=== PATIENT | female | born 1985 | race Caucasian/White ===

== ENCOUNTER 2016-10-14 12:48 | Emergency (ER) | payer OTHER ==
--- NOTE | 2016-10-14 13:47 | ED CLINICAL REPORT ---
Clinical Report - Physicians/Mid Levels [facility] [address] [place] [address] 10/14/2016 12:53 Patient: ALEJANDRA LAZO Time Seen: 13:14 Oct 14 2016. Arrived- By private vehicle. Historian- patient. HISTORY OF PRESENT ILLNESS Chief Complaint: EYE PAIN. This started just prior to arrival, involves the left eye and is characterized as mild. It is not still present. Eye pain. No eye discomfort or eye burning. 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 He reports some blurred vision. Denies any new vision changes. Patient reports he is supposed to be wearing prescription glasses, however has not been wearing since due to financial costs and restrictions. Denies a headache. Denies LOC.). REVIEW OF SYSTEMS All systems otherwise negative, except as recorded above. PAST HISTORY See nurses notes. ADDITIONAL NOTES The nursing notes have been reviewed. PHYSICAL EXAM Vital Signs: 10/14/2016 13:03 BP: 139/73. HR: 61. RR: 18. O2 saturation: 100%. Temp: 97.8 F. Pain level now: 2/10. HEENT: Ears normal. Nose normal. Rt Eye: Right eye exam normal. Eyes: Visual acuity noted- see nurse's notes. Left eye examined with slit lamp. Lt Eye: Injury to periorbital area- (inferior lid small abrasion, minor swelling). Corneal foreign body is present. Fluorescein dye uptake on the cornea. Pupil regular. No hyphema, retinal hemorrhages, conjunctival edema or EOM palsy. Angle not shallow. No papilledema. Conjunctiva not injected. CVS: Normal heart rate and rhythm. Heart sounds normal. Respiratory: No respiratory distress. Breath sounds normal. Skin: No rash. Neuro: Oriented X 3. PROGRESS AND PROCEDURES Course of Care: No signs of foreign body, signs of fluorescein dye uptake. Patient with good EOM. No signs of protruding injuries. Patient very stable. No osseous tenderness. No headache. No other injuries. Small subconjunctival hemorrhage on the left aspect laterally. No signs of other protruding injuries, negative Tinel sign. 10/14/2016 13:03 BP: 139/73. HR: 61. RR: 18. O2 saturation: 100%. Temp: 97.8 F. Pain level now: 10. Patient is stable. Symptoms better. Patient/family counseled. Disposition: Discharged. CLINICAL IMPRESSION Small corneal abrasion to the left eye. Single superficial abrasion to the left eyelid. INSTRUCTIONS ([facility] ). Prescription Medications: Polytrim ophthalmic solution: Instill 1 drop into affected eye every 3 hours while awake (max 6 doses per day) for 1 week. Dispense five (5) mL. No refills. Substitution is permissible. (Electronically signed by Anita Elias P.A.-C 10/14/2016 15:23)
--- NOTE | 2016-10-14 13:47 | ED NURSING NOTES ---
Clinical Report - Nurses [facility] [address] [place] [address] 10/14/2016 12:53 Patient: ALEJANDRA LAZO TRIAGE Acuity: LEVEL 3. Chief Complaint: REDNESS, PAIN and VISION PROBLEM TO LEFT EYE. Alert. No acute distress. SEPSIS SCREEN: Sepsis Screen. Negative (no infection suspected/documented). VISUAL ACUITY: Visual acuity performed: unable to obtain due to blurred vision. --13:08 Vero Webber R.N. 13:03 10/14/16. BP: 139/73. HR: 61. RR: 18. O2 saturation: 100% on room air. Temp: 97.8 F (oral). Pain level now: 2/10. --13:08 Vero Webber R.N. Weight: 70.3 kg stated. Height/Length: 72 inches Per Patient. BMI: 21. --13:07 Vero Webber R.N. Medications None. --13:06 Vero Webber R.N. Medication/allergy information source: the patient. --13:08 Vero Webber R.N. Allergies No Known Drug Allergy. --13:06 Vero Webber R.N. History Arrived by private vehicle. Historian: patient. Accompanied by friend. Primary physician (none). This started just prior to arrival. She sustained injury. 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 (iced). PAST MEDICAL HX: Immunizations: up-to-date. SOCIAL HX: Current every day light tobacco smoker- less than 1/2 a pack per day. Occasional alcohol use. History of weekly drug use: marijuana. FALL RISK ASSESSMENT: Fall risk assessment completed. No fall risk identified. NUTRITIONAL RISK ASSESSMENT: The nutritional risk assessment revealed no deficiencies. FUNCTIONAL ASSESSMENT: Functional assessment: no impairments noted. LEARNING NEEDS ASSESSMENT: The learning needs assessment revealed no barriers. SKIN INTEGRITY ASSESSMENT: Skin integrity risk assessment completed. No skin integrity risk identified. --13:08 Vero Webber R.N. Assessment GENERAL / NEURO / PSYCH: Alert. Oriented X 4. Appears in no acute distress. [place] Coma Scale: 15- eyes open spontaneously (4); best verbal response- oriented x 4 (5); best motor response- obeys commands (6). Patient appears calm and cooperative. RESPIRATORY: Respirations not labored. CVS: Capillary refill less than 2 seconds. GI / : Abdomen nontender. SKIN: Mucous membranes are pink. Skin is warm and dry. --13:08 Vero Webber R.N. Interventions ID band on patient. To treatment room. --13:08 Vero Webber R.N. NURSING PROGRESS NOTES 13:08 10/14/16. Two patient identifiers checked. Call light placed in reach. Bed placed in lowest position. Brakes of bed on. Patient ready for evaluation- chart flagged and ED physician and PA notified. --13:08 Vero Webber R.N. DISPOSITION / DISCHARGE Departure time: 13:50 Oct 14 2016. Condition at departure: improved and stable. No learning barriers present. Discharge instructions provided and reviewed with the patient. Reviewed medication(s) side effects, precautions and dosing information. Prescription(s) given to the patient. Patient verbalized understanding. Written instructions provided in Uzbek. The patient was discharged by the physician cosmetic sales assistant. She was discharged home and accompanied by ob nurse. She left the Emergency Department ambulatory and via private vehicle. Propeller Engineer driving. --14:52 Vero Webber R.N. Locked/Released at 10/14/2016 14:52 by Vero Webber R.N.
--- NOTE | 2016-10-14 13:47 | ED NURSING NOTES ---
Clinical Report - Nurses [facility] [address] [place] [address] 10/14/2016 12:53 Patient: ALEJANDRA LAZO TRIAGE Acuity: LEVEL 3. Chief Complaint: REDNESS, PAIN and VISION PROBLEM TO LEFT EYE. Alert. No acute distress. SEPSIS SCREEN: Sepsis Screen. Negative (no infection suspected/documented). VISUAL ACUITY: Visual acuity performed: unable to obtain due to blurred vision. --13:08 Vero Webber R.N. 13:03 10/14/16. BP: 139/73. HR: 61. RR: 18. O2 saturation: 100% on room air. Temp: 97.8 F (oral). Pain level now: 2/10. --13:08 Vero Webber R.N. Weight: 70.3 kg stated. Height/Length: 72 inches Per Patient. BMI: 21. --13:07 Vero Webber R.N. Medications None. --13:06 Vero Webber R.N. Medication/allergy information source: the patient. --13:08 Vero Webber R.N. Allergies No Known Drug Allergy. --13:06 Vero Webber R.N. History Arrived by private vehicle. Historian: patient. Accompanied by friend. Primary physician (none). This started just prior to arrival. She sustained injury. 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 PAST MEDICAL HX: Immunizations: up-to-date. SOCIAL HX: Current every day light tobacco smoker- less than 1/2 a pack per day. Occasional alcohol use. History of weekly drug use: marijuana. FALL RISK ASSESSMENT: Fall risk assessment completed. No fall risk identified. NUTRITIONAL RISK ASSESSMENT: The nutritional risk assessment revealed no deficiencies. FUNCTIONAL ASSESSMENT: Functional assessment: no impairments noted. LEARNING NEEDS ASSESSMENT: The learning needs assessment revealed no barriers. SKIN INTEGRITY ASSESSMENT: Skin integrity risk assessment completed. No skin integrity risk identified. --13:08 Vero Webber R.N. Assessment GENERAL / NEURO / PSYCH: Alert. Oriented X 4. Appears in no acute distress. [place] Coma Scale: 15- eyes open spontaneously (4); best verbal response- oriented x 4 (5); best motor response- obeys commands (6). Patient appears calm and cooperative. RESPIRATORY: Respirations not labored. CVS: Capillary refill less than 2 seconds. GI / : Abdomen nontender. SKIN: Mucous membranes are pink. Skin is warm and dry. --13:08 Vero Webber R.N. Interventions ID band on patient. To treatment room. --13:08 Vero Webber R.N. NURSING PROGRESS NOTES 13:08 10/14/16. Two patient identifiers checked. Call light placed in reach. Bed placed in lowest position. Brakes of bed on. Patient ready for evaluation- chart flagged and ED physician and PA notified. --13:08 Vero Webber R.N. DISPOSITION / DISCHARGE Departure time: 13:50 Oct 14 2016. Condition at departure: improved and stable. No learning barriers present. Discharge instructions provided and reviewed with the patient. Reviewed medication(s) side effects, precautions and dosing information. Prescription(s) given to the patient. Patient verbalized understanding. Written instructions provided in Telugu. The patient was discharged by the physician captain assistant. She was discharged home and accompanied by clinical allergist. She left the Emergency Department ambulatory and via private vehicle. Nurses Director driving. --14:52 Vero Webber R.N. Locked/Released at 10/14/2016 14:52 by Vero Webber R.N.
--- NOTE | 2016-10-14 13:47 | ED CLINICAL REPORT ---
Clinical Report - Physicians/Mid Levels [facility] [address] [place] [place] [address] 10/14/2016 12:53 Patient: ALEJANDRA LAZO Time Seen: 13:14 Oct 14 2016. Arrived- By private vehicle. Historian- patient. HISTORY OF PRESENT ILLNESS Chief Complaint: EYE PAIN. This started just prior to arrival, involves the left eye and is characterized as mild. It is not still present. Eye pain. No eye discomfort or eye burning. 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 He reports some blurred vision. Denies any new vision changes. Patient reports he is supposed to be wearing prescription glasses, however has not been wearing since due to financial costs and restrictions. Denies a headache. Denies LOC.). REVIEW OF SYSTEMS All systems otherwise negative, except as recorded above. PAST HISTORY See nurses notes. ADDITIONAL NOTES The nursing notes have been reviewed. PHYSICAL EXAM Vital Signs: 10/14/2016 13:03 BP: 139/73. HR: 61. RR: 18. O2 saturation: 100%. Temp: 97.8 F. Pain level now: 2/10. HEENT: Ears normal. Nose normal. Rt Eye: Right eye exam normal. Eyes: Visual acuity noted- see nurse's notes. Left eye examined with slit lamp. Lt Eye: Injury to periorbital area- (inferior lid small abrasion, minor swelling). Corneal foreign body is present. Fluorescein dye uptake on the cornea. Pupil regular. No hyphema, retinal hemorrhages, conjunctival edema or EOM palsy. Angle not shallow. No papilledema. Conjunctiva not injected. CVS: Normal heart rate and rhythm. Heart sounds normal. Respiratory: No respiratory distress. Breath sounds normal. Skin: No rash. Neuro: Oriented X 3. PROGRESS AND PROCEDURES Course of Care: No signs of foreign body, signs of fluorescein dye uptake. Patient with good EOM. No signs of protruding injuries. Patient very stable. No osseous tenderness. No headache. No other injuries. Small subconjunctival hemorrhage on the left aspect laterally. No signs of other protruding injuries, negative Tinel sign. 10/14/2016 13:03 BP: 139/73. HR: 61. RR: 18. O2 saturation: 100%. Temp: 97.8 F. Pain level now: 10. Patient is stable. Symptoms better. Patient/family counseled. Disposition: Discharged. CLINICAL IMPRESSION Small corneal abrasion to the left eye. Single superficial abrasion to the left eyelid. INSTRUCTIONS ([facility] ). Prescription Medications: Polytrim ophthalmic solution: Instill 1 drop into affected eye every 3 hours while awake (max 6 doses per day) for 1 week. Dispense five (5) mL. No refills. Substitution is permissible. (Electronically signed by Anita Elias P.A.-C 10/14/2016 15:23)
--- NOTE | 2016-10-14 15:23 | ED DISCHARGE INSTRUCTIONS ---
Patient: ALEJANDRA LAZO General Instructions [facility] VisitID: [id number] [place] [address] 31y, F Registration Date/Time: 10/14/2016 Small corneal abrasion to the left eye. Single superficial abrasion to the left eyelid. INSTRUCTIONS ([facility] ). Prescription Medications: Polytrim ophthalmic solution: Instill 1 drop into affected eye every 3 hours while awake (max 6 doses per day) for 1 week. Dispense five (5) mL. No refills. Substitution is permissible. ADDITIONAL INFORMATION Corneal Abrasion The cornea is the clear part in the front of the eye. This sensitive area is very painful when injured. There may be tearing and your vision may be blurry until healing occurs. You may be sensitive to light. This part of the body heals quickly. You can expect the pain to go away within 24-48 hours. If the abrasion is large or deep, your doctor may apply an eye patch, although this is not always done. An antibiotic ointment or eye drops may also be used to prevent infection. Numbing drops may be used to relieve the pain temporarily so that your eyes can be examined. However, these drops cannot be prescribed for home use because that would slow down the healing process. Also, if you cant feel your eye, there is a chance of accidentally injuring your eye further without knowing it. Home Care: A cold pack (ice in a plastic bag, wrapped in a towel) may be applied over the eye (or eyepatch) for 20 minutes at a time, to reduce pain. You may use acetaminophen (Tylenol) or ibuprofen (Motrin, Advil) to control pain, unless another pain medicine was prescribed. [NOTE: If you have chronic liver or kidney disease or ever had a stomach ulcer or GI bleeding, talk with your doctor before using these medicines.] Rest your eyes and do not read until symptoms are gone. If you use contact lenses, do not wear them until all symptoms are gone. If your vision is affected by the corneal abrasion or if an eyepatch was applied, DO NOT DRIVE a motor vehicle or operate machinery until all symptoms are gone. Otherwise, you would have trouble judging distances with only one eye. If your eyes are sensitive to light, try wearing sunglasses, or stay indoors, until symptoms go away. Follow Up as advised by our staff. Serious abrasions may be referred to an injection specialist (director of coding). If no patch was used but the pain continues for more than 48 hours, you should have another exam. Return to this facility or contact the referral doctor to arrange this. If your eye was patched and if you were asked to remove the patch yourself, see your doctor or return to this facility if your pain is still present after the patch is removed. If you were given a return appointment for patch removal and re-exam, do not miss this. It could be harmful if the patch remains in place longer than advised. Get Prompt Medical Attention if any of the following occur: Increasing eye pain or pain that does not improve after 24 hours Discharge from the eye Increasing redness of the eye or swelling of the eyelids Your vision gets worse Abrasions Abrasions are skin scrapes. Their treatment depends on how large and deep the abrasion is. Home Care: If you were given a bandage, change it once a day. If your bandage sticks to the wound, soak it in warm water until it loosens. Wash the area with soap and water to remove all the cream/ointment. You may do this in a sink, under a tub faucet or shower. Rinse off the soap and pat dry with a clean towel. Reapply cream/ointment according to your doctor's instructions. This will prevent infection and help prevent the bandage from sticking. Cover the wound with a fresh non-stick bandage (Telfa). Repeat steps 1 to 4 daily, or as directed by your doctor. If the bandage becomes wet or dirty, change it as soon as possible. You may use acetaminophen (Tylenol) or ibuprofen (Motrin, Advil) to control pain, unless another pain medicine was prescribed. [ NOTE : If you have chronic liver or kidney disease or ever had a stomach ulcer or GI bleeding, talk with your doctor before using these medicines.] Do not use ibuprofen in children under six months of age. Follow Up with your physician or this facility as directed by our staff. Most skin wounds heal within ten days. However, an infection may occur despite proper treatment. Therefore, look for the early signs of infection listed below. Get Prompt Medical Attention if any of the following occur: Increasing pain in the wound Increasing redness or swelling Pus coming from the wound Fever of 100.4F (38C) or higher, or as directed by your healthcare provider You have been given the following additional information: Corneal Abrasion Abrasion (Electronically signed by Anita Elias P.A.-C 10/14/2016 15:23)
--- NOTE | 2016-10-14 15:23 | ED MAR SUMMARY ---
..... Medication Administration Record [facility] [address] [place] [id number] Patient: ALEJANDRA LAZO Visit ID: [id number] 31y, F Weight: 70.3 kg Height/Length: 72 in BMI: 21 ALLERGIES: No Known Drug Allergy
--- NOTE | 2016-10-14 15:23 | ED MED RECONCILIATION SUMMARY ---
Patient: ALEJANDRA LAZO Medication Reconciliation Report [facility] VisitID: [id number] [address] [place] [address] 31y, F Registration Date/Time: 10/14/2016 Weight: 70.3 kg Height/Length: 72 in. BMI: 21.0 ALLERGIES: No Known Drug Allergy The patient's Home Medications are listed below: NONE. The source(s) of the original Home Medication information: patient The following Medications were given to the patient in the Emergency Department: None. The following Medications were prescribed to the patient: Polytrim ophthalmic solution: Instill 1 drop into affected eye every 3 hours while awake (max 6 doses per day) for 1 week. Dispense five (5) mL. No refills. Substitution is permissible. -- Anita Elias P.A.-C
--- NOTE | 2016-10-14 15:23 | ED MED RECONCILIATION SUMMARY ---
Patient: ALEJANDRA LAZO Medication Reconciliation Report [facility] VisitID: [id number] [address] [place] [address] 31y, F Registration Date/Time: 10/14/2016 Weight: 70.3 kg Height/Length: 72 in. BMI: 21.0 ALLERGIES: No Known Drug Allergy The patient's Home Medications are listed below: NONE. The source(s) of the original Home Medication information: patient The following Medications were given to the patient in the Emergency Department: None. The following Medications were prescribed to the patient: Polytrim ophthalmic solution: Instill 1 drop into affected eye every 3 hours while awake (max 6 doses per day) for 1 week. Dispense five (5) mL. No refills. Substitution is permissible. -- Anita Elias P.A.-C
--- NOTE | 2016-10-14 15:23 | ED MAR SUMMARY ---
..... Medication Administration Record [facility] [address] [place] [id number] Patient: ALEJANDRA LAZO Visit ID: [id number] 31y, F Weight: 70.3 kg Height/Length: 72 in BMI: 21 ALLERGIES: No Known Drug Allergy
--- NOTE | 2016-10-14 15:23 | ED DISCHARGE INSTRUCTIONS ---
Patient: ALEJANDRA LAZO General Instructions [facility] VisitID: [id number] [place] [address] 31y, F Registration Date/Time: 10/14/2016 Small corneal abrasion to the left eye. Single superficial abrasion to the left eyelid. INSTRUCTIONS ([facility] ). Prescription Medications: Polytrim ophthalmic solution: Instill 1 drop into affected eye every 3 hours while awake (max 6 doses per day) for 1 week. Dispense five (5) mL. No refills. Substitution is permissible. ADDITIONAL INFORMATION Corneal Abrasion The cornea is the clear part in the front of the eye. This sensitive area is very painful when injured. There may be tearing and your vision may be blurry until healing occurs. You may be sensitive to light. This part of the body heals quickly. You can expect the pain to go away within 24-48 hours. If the abrasion is large or deep, your doctor may apply an eye patch, although this is not always done. An antibiotic ointment or eye drops may also be used to prevent infection. Numbing drops may be used to relieve the pain temporarily so that your eyes can be examined. However, these drops cannot be prescribed for home use because that would slow down the healing process. Also, if you cant feel your eye, there is a chance of accidentally injuring your eye further without knowing it. Home Care: A cold pack (ice in a plastic bag, wrapped in a towel) may be applied over the eye (or eyepatch) for 20 minutes at a time, to reduce pain. You may use acetaminophen (Tylenol) or ibuprofen (Motrin, Advil) to control pain, unless another pain medicine was prescribed. [NOTE: If you have chronic liver or kidney disease or ever had a stomach ulcer or GI bleeding, talk with your doctor before using these medicines.] Rest your eyes and do not read until symptoms are gone. If you use contact lenses, do not wear them until all symptoms are gone. If your vision is affected by the corneal abrasion or if an eyepatch was applied, DO NOT DRIVE a motor vehicle or operate machinery until all symptoms are gone. Otherwise, you would have trouble judging distances with only one eye. If your eyes are sensitive to light, try wearing sunglasses, or stay indoors, until symptoms go away. Follow Up as advised by our staff. Serious abrasions may be referred to an agronomy specialist (pad machine operator). If no patch was used but the pain continues for more than 48 hours, you should have another exam. Return to this facility or contact the referral doctor to arrange this. If your eye was patched and if you were asked to remove the patch yourself, see your doctor or return to this facility if your pain is still present after the patch is removed. If you were given a return appointment for patch removal and re-exam, do not miss this. It could be harmful if the patch remains in place longer than advised. Get Prompt Medical Attention if any of the following occur: Increasing eye pain or pain that does not improve after 24 hours Discharge from the eye Increasing redness of the eye or swelling of the eyelids Your vision gets worse Abrasions Abrasions are skin scrapes. Their treatment depends on how large and deep the abrasion is. Home Care: If you were given a bandage, change it once a day. If your bandage sticks to the wound, soak it in warm water until it loosens. Wash the area with soap and water to remove all the cream/ointment. You may do this in a sink, under a tub faucet or shower. Rinse off the soap and pat dry with a clean towel. Reapply cream/ointment according to your doctor's instructions. This will prevent infection and help prevent the bandage from sticking. Cover the wound with a fresh non-stick bandage (Telfa). Repeat steps 1 to 4 daily, or as directed by your doctor. If the bandage becomes wet or dirty, change it as soon as possible. You may use acetaminophen (Tylenol) or ibuprofen (Motrin, Advil) to control pain, unless another pain medicine was prescribed. [ NOTE : If you have chronic liver or kidney disease or ever had a stomach ulcer or GI bleeding, talk with your doctor before using these medicines.] Do not use ibuprofen in children under six months of age. Follow Up with your physician or this facility as directed by our staff. Most skin wounds heal within ten days. However, an infection may occur despite proper treatment. Therefore, look for the early signs of infection listed below. Get Prompt Medical Attention if any of the following occur: Increasing pain in the wound Increasing redness or swelling Pus coming from the wound Fever of 100.4F (38C) or higher, or as directed by your healthcare provider You have been given the following additional information: Corneal Abrasion Abrasion (Electronically signed by Anita Elias P.A.-C 10/14/2016 15:23)
== END 2016-10-14 13:50 | disposition home or self-care (01) ==
LOC: ED SRH 12:48
DX: S05.02XA Injury of conjunctiva and corneal abrasion without foreign body, left eye, initial encounter (principal); S00.212A Abrasion of left eyelid and periocular area, initial encounter; W22.8XXA Striking against or struck by other objects, initial encounter; Y93.H2 Activity, gardening and landscaping; Y92.89 Other specified places as the place of occurrence of the external cause; Y99.0 Civilian activity done for income or pay; F17.210 Nicotine dependence, cigarettes, uncomplicated